=== PATIENT | male | born 1980 | race Hispanic/Latino ===

== ENCOUNTER 2018-09-16 10:34 | Emergency (ER) | payer OTHER, SELFPAY ==
[2018-09-16 10:35] VITALS: BP 155/99; PULSE 82; RESP 15; TEMP 36.1; O2SAT 95
--- NOTE | 2018-09-16 10:51 | CT_ITS ---
STUDY: CT ABDOMEN AND PELVIS WITHOUT CONTRAST REASON FOR EXAM: Male, 38 years old. Nail gun wound to the left upper abdomen. RADIATION DOSAGE (If Supplied By Facility): CTDIvol = ( 17.30 ) mGy, DLP = ( 855.93 ) mGycm TECHNIQUE: Transaxial images were obtained from the dome of the diaphragm to the symphysis pubis without oral contrast, and without intravenous contrast. Sagittal and coronal images were reconstructed. Individualized dose optimization techniques were used for this CT. COMPARISON: None. FINDINGS: 7.5 mm metallic density is seen in the left upper anterior abdominal wall. This extends into the superficial subcutaneous tissue. Contiguous 1 seconds Minimal degree of right basilar atelectasis. Calcified granuloma in the right lower lobe. The visualized portions of the heart are within normal limits. There is decreased attenuation of the liver consistent with steatosis. Normal gallbladder and extrahepatic biliary system. Normal spleen. Normal pancreas. Normal bilateral adrenal glands. Normal right kidney. Normal left kidney. Normal visualized stomach. Normal small intestine. There are scattered colonic diverticula consistent with diverticulosis. The appendix is visualized and appears normal. Normal abdominal aorta. Normal inferior vena cava. Normal retroperitoneum. Partially distended urinary bladder with a bladder wall thickening. There is a left-sided inguinal hernia containing adipose tissue. Normal osseous structures. CT/Abdomen/Pelvis without Cont IMPRESSION: 7.5 mm metallic density in the anterior left upper abdominal wall with the distal tip within the superficial subcutaneous tissues. Scattered sigmoid diverticula. Electronically Signed: Carlos Mart, at 13:15 EDT , Service support ,
--- NOTE | 2018-09-16 10:52 | ED.VISSUMM ---
- ER Visit Summary Date of Service: 09/16/18 Chief Complaint: Abdominal injury History of Present Illness: The patient is a 38 M who presents with an abdominal wound that occurred today while at work. 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 Patient was using a nail gun to nail wood. Butadiene Compressor Operator states that the nail hit a knot in the wood and ricocheted back into his abdomen. Butadiene Compressor Operator was able to cut the nail off and remove the piece of wood. Patient states the pain is sharp. Patient states the pain is localized to the wound area. Patient denies any nausea or vomiting. Patient denies any chest pain or shortness of breath. Physical Examination: Vital signs are stable. Patient is afebrile. Patient is in no acute distress. Oral mucosa is pink and moist. Neck is supple. Trachea is midline. Heart was regular rate and rhythm. Lungs are clear and equal bilateral. Abdomen is soft. Bowel sounds are normal. There is left upper quadrant tenderness and left lower quadrant tenderness. There is no rebound or guarding. There is a foreign body noted in the left upper quadrant. There is no active bleeding. Cranial nerves II through XII are intact. There are no focal motor or sensory deficits noted. Test Results: CT scan of the abdomen and pelvis showed the foreign body in the subcutaneous tissue. There is no penetration of the abdominal cavity. CBC and metabolic profile were normal. Emergency Department Course and Treatment: Patient was given tetanus immunoglobulin and tetanus booster. The area was cleaned with Betadine. The area was anesthetized 1% plain lidocaine locally. An 11 blade scalpel was used to make a small incision on each side of the foreign body. When I attempted to grab the foreign body with hemostats the foreign body went deeper into the wound. The incision was extended. When I continued to probe the wound for the foreign body I was unable to palpate it with hemostats. I was unable to grab the foreign body. The wound was left open. Patient was given a prescription for Keflex. Patient was referred for general surgery follow-up. Patient understood and was agreeable with the plan. All questions were answered. Disposition: Discharge home Impression: Foreign body abdomen This note was generated with [employer] software. It may contain incorrect words, spelling, and punctuation that were not noted in review of the chart prior to signing ED Disposition - Plan for ED Patient: Disposition: Home or Assisted Living Diagnosis: Foreign body (FB) in soft tissue Instructions: ED Foreign Body Soft Tissue Prescriptions: Cephalexin [Keflex] 500 mg PO Q6 #40 cap Referrals: Care Physician,No Primary [Primary Care Provider] - Seema Herrera MD [STAFF PHYSICIAN] - 5-7 Days
--- NOTE | 2018-09-16 10:56 | ED.DCSUM_ITS ---
- ER Visit Summary Date of Service: 09/16/18 Chief Complaint: Abdominal injury History of Present Illness: The patient is a 38 M who presents with an abdominal wound that occurred today while at work. 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 Patient was using a nail gun to nail wood. Client Resolution Specialist states that the nail hit a knot in the wood and ricocheted back into his abdomen. Client Resolution Specialist was able to cut the nail off and remove the piece of wood. Patient states the pain is sharp. Patient states the pain is localized to the wound area. Patient denies any nausea or vomiting. Patient denies any chest pain or shortness of breath. Physical Examination: Vital signs are stable. Patient is afebrile. Patient is in no acute distress. Oral mucosa is pink and moist. Neck is supple. Trachea is midline. Heart was regular rate and rhythm. Lungs are clear and equal bilateral. Abdomen is soft. Bowel sounds are normal. There is left upper quadrant tenderness and left lower quadrant tenderness. There is no rebound or guarding. There is a foreign body noted in the left upper quadrant. There is no active bleeding. Cranial nerves II through XII are intact. There are no focal motor or sensory deficits noted. Test Results: CT scan of the abdomen and pelvis showed the foreign body in the subcutaneous tissue. There is no penetration of the abdominal cavity. CBC and metabolic profile were normal. Emergency Department Course and Treatment: Patient was given tetanus immunoglobulin and tetanus booster. The area was cleaned with Betadine. The area was anesthetized 1% plain lidocaine locally. An 11 blade scalpel was used to make a small incision on each side of the foreign body. When I attempted to grab the foreign body with hemostats the foreign body went deeper into the wound. The incision was extended. When I continued to probe the wound for the foreign body I was unable to palpate it with hemostats. I was unable to grab the foreign body. The wound was left open. Patient was given a prescription for Keflex. Patient was referred for general surgery follow-up. Patient understood and was agreeable with the plan. All questions were answered. Disposition: Discharge home Impression: Foreign body abdomen This note was generated with [employer] software. It may contain incorrect words, spelling, and punctuation that were not noted in review of the chart prior to signing ED Disposition - Plan for ED Patient: Disposition: Home or Assisted Living Diagnosis: Foreign body (FB) in soft tissue Instructions: ED Foreign Body Soft Tissue Prescriptions: Cephalexin [Keflex] 500 mg PO Q6 #40 cap Referrals: Care Physician,No Primary [Primary Care Provider] - Seema Herrera MD [STAFF PHYSICIAN] - 5-7 Days
[2018-09-16 11:10] LABS: Absolute Lymphocyte Count 1.34 X10^3/ul (0.83-4.51); Absolute Neutrophil Count 3.8 X10^3/uL (2.0-7.7); Basophil# 0.02 X10^3/uL; Basophil% 0.3 % (0-1); Eosinophils% 3.3 % (0-5); Hematocrit 42.9 % (40-54); Hemoglobin 15.1 g/dl (13.0-16.5); Lymphocyte # 1.34 X10^3/ul (4.0); Lymphocyte % 22.3 % (19-41); Mean Corp Hgb Conc 35.2 g/gl (32-36); Mean Corpuscular Hgb 31.2 pg (27.0-32.0); Mean Corpuscular Volume 88.6 fL (80-94); Mean Platelet Vol. 10.8 fl (6.2-12.0); Neutrophil # 3.83 X10^3/uL (2.7-7.7); Neutrophil % 63.9 % (47-70); Platelet Count 213 K/mm3 (150-450); RBC Distribution Width CV 13.2 % (11.6-14.6); RBC Distribution Width SD 42.4 fl (35.1-43.9); Red Blood Count 4.84 M/mm3 (4.6-6.2)
[2018-09-16 11:11] LABS: POSITIVE COUNT NO; POSITIVE DIFFERENTIAL NO; POSITIVE MORPHOLOGY NO
[2018-09-16 11:21] LABS: Anion Gap 5 (5-15); BUN 9 mg/dL (7-18); BUN/Creat Ratio 12.4 RATIO (10-20); Calcium,Total 8.1 mg/dL (8.5-10.1); Chloride 106 mmol/L (98-107); Creatinine, Serum 0.73 mg/dL (0.70-1.30); EST Glomerular Filtration Rate 129 mL/min (>60); Est Glom Filt Rate - Afr Amer 156 mL/min (>60); Estimated Creatinine Clearance 196.75 ml/min; Glucose 112 mg/dL (74-106); Potassium 3.8 mmol/L (3.5-5.1); Sodium Level 137 mmol/L (136-145)
[2018-09-16] MEDS: Diphth,Pertuss(Acell),Tet Vac 0.5 ML Vial IM (12:17)
[2018-09-16 12:23] VITALS: PULSE 71; RESP 15; O2SAT 97
== END 2018-09-16 13:09 | disposition home or self-care (01) ==
PROVIDERS: Emergency Provider Emergency Medicine
DX: S30.851A Superficial foreign body of abdominal wall, initial encounter (principal); W20.8XXA Other cause of strike by thrown, projected or falling object, initial encounter; Y93.89 Activity, other specified; Y92.9 Unspecified place or not applicable; Y99.0 Civilian activity done for income or pay; E66.9 Obesity, unspecified
CPT/HCPCS: 10121; 74176; 80048; 85025; 90471; 90715; 99284; J1670; A4216